=== PATIENT | female | born 2000 | race African-American/Black ===

== ENCOUNTER 2025-03-22 08:46 | Emergency (ER) | payer BC ==
[~2025-03-22] VITALS: Ht 175.3 cm; Wt 68.5 kg
[2025-03-22 09:20] LABS: PLATELET COUNT (AUTO) 295 K/uL (150-450); RED BLOOD CELL COUNT(AUTO) 4.65 MIL/uL (4.0-5.2); RED CELL DISTRIBUTION WIDTH 14.0 % (11.5-15.0); WHITE BLOOD COUNT (AUTO) 5.4 K/uL (4.3-11.0)
[2025-03-22 09:30] LABS: APPEARANCE,URINE CLEAR (CLEAR); BLOOD, URINE NEGATIVE Ery/uL (NEGATIVE); LEUKOCYTE ESTERASE ,URINE NEGATIVE (NEGATIVE); NITRITE, URINE NEGATIVE (NEGATIVE); UGLUCOSE NEGATIVE (NEGATIVE)
[2025-03-22 09:36] LABS: ASPARTATE AMINOTRANSFERASE 8.0 U/L (15-37); CALCIUM, SERUM 9.2 mg/dL (8.5-10.1); CREATININE 1.1 mg/dL (0.6-1.3); SODIUM SERUM 138.0 mmol/L (136-145); TOTAL PROTEIN, SERUM 7.5 g/dL (6.4-8.2); UREA NITROGEN, BLOOD 13.0 mg/dL (7-18)
[2025-03-22 09:37] LABS: INR 1.06 (0.91-1.10)
[2025-03-22 09:44] LABS: PREGNANCY TEST SERUM QUAN 4.0 mIU/mL (0-6)
[2025-03-22 11:04] VITALS: BP 118/78; TEMP 98.2; O2SAT 97
== END 2025-03-22 11:04 | disposition home or self-care (01) ==
LOC: ER 08:54
DX: O20.0 Threatened abortion (principal); Z3A.01 Less than 8 weeks gestation of pregnancy; Z60.2 Problems related to living alone
CPT/HCPCS: 36415; 76856-TC; 80048-TC; 80076-TC; 84702-TC; 85025-TC; 85730-TC; 86850-TC